=== PATIENT | male | born 2000 | race Caucasian/White ===

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

== ENCOUNTER 2018-01-18 16:40 | Emergency (ER) | payer OTHER, MEDICAID ==
[~2018-01-18] VITALS: Ht 180.3 cm; Wt 84.0 kg
[~2018-01-18 16:40] MED LIST changes: -AMOX500T PO; +AMOX875T PO; -ASPI81TA82 PO; +FLUT1SPR9 EACH NARE; -GUAI100S6 PO; +PRED20 PO; +VENTAER INH
[2018-01-18 16:55] VITALS: BP 137/63; PULSE 79; RESP 16; TEMP 98.2; O2SAT 99
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
[2018-01-18] MEDS ORDERED: ROBA500T PO (17:57)
[2018-01-18] MEDS ORDERED: DICL75TA PO (17:57)
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
== END 2018-01-18 19:22 | disposition home or self-care (01) ==
LOC: PHEFT 16:40
DX: S09.90XA Unspecified injury of head, initial encounter (principal); S13.4XXA Sprain of ligaments of cervical spine, initial encounter; V49.9XXA Car occupant (driver) (passenger) injured in unspecified traffic accident, initial encounter; J45.909 Unspecified asthma, uncomplicated; F17.200 Nicotine dependence, unspecified, uncomplicated
CPT/HCPCS: 70450; 72125; 99283